=== PATIENT | male | born 1950 | race Caucasian/White ===

== ENCOUNTER 2017-10-15 11:41 | Emergency (ER) | payer MEDICARE, MEDICAID ==
[~2017-10-15] VITALS: Ht 182.9 cm; Wt 81.7 kg
[~2017-10-15 11:41] MED LIST: AF CAPSICUM 0.060 GM TOP; AMOXIL 875 MG875 M1 PO; APAP500; ASPIRIN EC325 M1 PO; B-121000 MC2 PO; BISMATROL525 MG/15; BISMATROL525 MG/15 PO; CARDIZEM CD120 MG PO; CARDIZEM CD180 MG PO; CLARITIN10 MG PO; COLACE 100 MG100 MG PO; DILTIAZEM 24HR240 M1 PO; DILTIAZEM ER120 MG PO; DUONEB 2.5-0.5 M3 ML INH; FLOMAX0.4 MG PO; FLONASE 0.05%50 MCG NASAL; FOLIC ACID1 MG PO; FOSAMAX 70 MG T70 M1; KEPPRA 500 MG500 M1 PO; LANOXIN 0.250.25 M1 PO; LORATIDINE 10 M10 M1; MULTAQ400 MG PO; MULTIVITAMINS1 EAC7; MULTIVITAMINS1 EAC7 PO; NAPROXEN DELAY500 M1 PO; OLANZAPINE5 MG; OMEPRAZOLE 20 M20 MG; OMEPRAZOLE20 M1 PO; OYSTER SHELL C1 EA14; PRENATAL PO; ROBITUSSIN100 MG/53 PO; SEA OMEGA; TRIPLE ANTIBIO1 EACH; TYLENOL COLD M240 ML PO; TYLENOL COLD-F240 ML; TYLENOL325 MG PO; VITAMIN C 250250 MG; VITAMIN C250 MG PO; VITAMIN D1000 UNI1 PO; ZYPREXA 5 MG TAB5 MG PO; ZYPREXA5 MG PO; [UNRECOGNIZED DRUG - OTHER]
[2017-10-15 12:24] LABS: HEMATOCRIT 43.5 % (42.0-52.0); HEMOGLOBIN 14.5 gm/dL (14.0-18.0); MCH 31.9 pg (26.0-34.0); MCHC 33.4 g/dL (28.0-37.0); MCV 95.5 fL (80.0-100.0); MPV 7.7 fl. (7.2-11.1); NUCLEATED RBCS 0 /100WBC; PLATELET COUNT* 183 thou/uL (150-400); RBC 4.55 mil/uL (4.50-6.00); RDW-CV 13.7 % (10.5-14.5); WBC 9.2 thou/uL (4.0-11.0)
[2017-10-15 12:35] LABS: ALBUMIN 3.7 g/dL (3.4-5.0); CALCIUM 8.9 mg/dL (8.5-10.1); CREATININE 1.1 mg/dL (0.6-1.3); POTASSIUM 4.2 mmol/L (3.5-5.1); TOTAL BILIRUBIN 0.6 mg/dL (<0.1-1.0); TOTAL PROTEIN 7.3 g/dL (6.4-8.2)
[2017-10-15 12:39] LABS: ABSOLUTE EOSINOPHILS 0.1 thou/uL (0.0-0.7); ABSOLUTE LYMPHOCYTES 0.8 thou/uL (0.8-5.3); ABSOLUTE MONOCYTES 0.3 thou/uL (0.0-1.2); ANISOCYTOSIS 1+; PLATELET ESTIMATE ADEQUATE; POIKILOCYTOSIS 1+
[2017-10-15 12:57] VITALS: BP 127/61
--- NOTE | 2017-10-15 20:20 | EKG ---
[place] [address] ELECTROCARDIOGRAM REPORT Name: ELIF STINSON Room: [facility]#: [id number] Admission: 10/15/17 Attend Phys: Discharge: 10/15/17 Date of : 52 Report #: [id number] THIS REPORT FOR: //name// [facility] ED Test Date: 2017-10-15 Test Time: 11:54:14 Pat Name: ELIF STINSON Department: Room: Gender: M Power Line Lineman: Sadi GORE : 1950 Requested By: Mo Jack Order Number: [id number] MD: Hesham Garcia Measurements Intervals [place] Rate: 106 P: 39 MT: 176 QRS: -19 QRSD: 111 T: 43 QT: 360 QTc: 479 Interpretive Statements Sinus tachycardia Abnormal R-wave progression, early transition Inferior infarct, old Compared to ECG 08/07/2017 11:37:05 Myocardial infarct finding now present Sinus rhythm no longer present Electronically Signed On 10-15-2017 20:20:37 WELT STITCH CLEANER by Hesham Garcia [email or web address] <ELECTRONICALLY SIGNED> By: Hesham Garcia MD, FACC 10/15/172019 1154 1154 Hesham Garcia MD, [facility] /EPI
== END 2017-10-15 12:59 | disposition home or self-care (01) ==
LOC: M.ERS 11:41
PROVIDERS: Family Medicine
DX: R56.9 Unspecified convulsions (principal); M19.90 Unspecified osteoarthritis, unspecified site; M81.0 Age-related osteoporosis without current pathological fracture; I48.91 Unspecified atrial fibrillation; R27.0 Ataxia, unspecified; Z86.73 Personal history of transient ischemic attack (TIA), and cerebral infarction without residual deficits

== ENCOUNTER 2018-07-31 13:55 | Emergency (ER) | payer MEDICARE, MEDICAID ==
[~2018-07-31] VITALS: Ht 175.3 cm; Wt 80.7 kg
[2018-07-31] MEDS ORDERED: KEPPRA750 MG PO (14:20)
[2018-07-31] MEDS ORDERED: DESITIN57 GM TOP (14:23)
[2018-07-31 14:56] LABS: ABSOLUTE BASOPHILS 0.1 thou/uL (0.0-0.2); ABSOLUTE EOSINOPHILS 0.1 thou/uL (0.0-0.7); ABSOLUTE LYMPHOCYTES 1.2 thou/uL (0.8-5.3); ABSOLUTE MONOCYTES 0.4 thou/uL (0.0-1.2); ABSOLUTE NEUTROPHILS 8.3 thou/uL (1.6-8.1); BASOPHILS 0.7 %; EOSINOPHILS 1.2 %; HEMATOCRIT 39.5 % (42.0-52.0); HEMOGLOBIN 13.4 gm/dL (14.0-18.0); LYMPHOCYTES 12.2 %; MCH 31.7 pg (26.0-34.0); MCHC 33.9 g/dL (28.0-37.0); MCV 93.4 fL (80.0-100.0); MONOCYTES 4.3 %; MPV 6.6 fl. (7.2-11.1); NUCLEATED RBCS 0 /100WBC; PLATELET COUNT* 249 thou/uL (150-400); POLYS 81.6 %; RBC 4.23 mil/uL (4.50-6.00); WBC 10.1 thou/uL (4.0-11.0)
[2018-07-31 15:06] LABS: ANION GAP 8 mmol/L (7-16); BUN 20 mg/dL (7-18); CALCIUM 9.2 mg/dL (8.5-10.1); CHLORIDE 105 mmol/L (98-107); CO2 28 mmol/L (21-32); CREATININE 0.9 mg/dL (0.6-1.3); GLUCOSE 125 mg/dL (70-99); POTASSIUM 3.7 mmol/L (3.5-5.1); SODIUM 141 mmol/L (136-145)
[2018-07-31 15:17] LABS: ALKALINE PHOSPHATASE 71 U/L (46-116); NT-PRO BRAIN NAT PEPTIDE 241 pg/mL (<300); SGOT 19 U/L (15-37); SGPT 22 U/L (30-65); TOTAL BILIRUBIN 0.5 mg/dL (<0.1-1.0); TOTAL PROTEIN 7.4 g/dL (6.4-8.2); TROPONIN-I LEVEL <0.06 ng/mL (<0.06)
[2018-07-31] MEDS ORDERED: FLAGYL500 M1 PO (15:24)
[2018-07-31] MEDS ORDERED: ZOFRAN4 MG PO (15:24)
[2018-07-31 15:34] VITALS: BP 130/67
--- NOTE | 2018-08-01 10:21 | EKG ---
[place] [address] ELECTROCARDIOGRAM REPORT Name: ELIF STINSON Room: [facility]#: [id number] Admission: 07/31/18 Attend Phys: Discharge: 07/31/18 Date of : 52 Report #: [id number] THIS REPORT FOR: //name// [facility] ED Test Date: 2018-07-31 Test Time: 14:25:18 Pat Name: ELIF STINSON Department: Room: Gender: M Therapist Rrt: Sadi GORE : 1950 Requested By: Lowell Maddox Order Number: [id number] MD: Daniele Barclay Measurements Intervals [place] Rate: 75 P: 28 PA: 169 QRS: -39 QRSD: 114 T: 19 QT: 408 QTc: 456 Interpretive Statements Sinus rhythm artifact noted Borderline IVCD with LAD Low voltage, precordial leads Compared to ECG 10/15/2017 11:54:14 Low QRS voltage now present Sinus tachycardia no longer present Electronically Signed On 08-01-2018 10:20:53 OUTBOUND SUPERVISOR by Daniele Barclay [email or web address] <ELECTRONICALLY SIGNED> By: Daniele Barclay MD, [facility] 08/01/18 1020 1425 1425 Daniele Barclay MD, [facility] /EPI
== END 2018-07-31 15:35 | disposition home or self-care (01) ==
LOC: M.ERS 13:55
PROVIDERS: Emergency Medicine
DX: R13.10 Dysphagia, unspecified (principal); M19.90 Unspecified osteoarthritis, unspecified site; I48.91 Unspecified atrial fibrillation

== ENCOUNTER 2019-06-20 10:45 | Inpatient (IN) | payer MEDICARE, MEDICAID ==
[2019-06-20] VITALS (11 sets, daily range): BP systolic 114–138; BP diastolic 56–79
[~2019-06-20] VITALS: Ht 177.8 cm; Wt 86.0 kg
[~2019-06-20 10:45] MED LIST changes: +DESITIN57 GM TOP; +FLAGYL500 M1 PO; +KEPPRA750 MG PO; +ZOFRAN4 MG PO
[2019-06-20 11:05] LABS: ABSOLUTE BASOPHILS 0.1 thou/uL (0.0-0.2); ABSOLUTE LYMPHOCYTES 1.2 thou/uL (0.8-5.3); ABSOLUTE MONOCYTES 0.5 thou/uL (0.0-1.2); BASOPHILS 1.1 %; EOSINOPHILS 0.5 %; HEMATOCRIT 41.5 % (42.0-52.0); HEMOGLOBIN 14.1 gm/dL (14.0-18.0); LYMPHOCYTES 17.9 %; MCH 31.8 pg (26.0-34.0); MCHC 33.9 g/dL (28.0-37.0); MCV 93.8 fL (80.0-100.0); MONOCYTES 7.1 %; MPV 7.9 fl. (7.2-11.1); NUCLEATED RBCS 0 /100WBC; PLATELET COUNT* 191 thou/uL (150-400); POLYS 73.4 %; RBC 4.42 mil/uL (4.50-6.00); RDW-CV 13.8 % (10.5-14.5); WBC 6.8 thou/uL (4.0-11.0)
[2019-06-20 11:15] LABS: CALCIUM 9.6 mg/dL (8.5-10.1); CREATININE 1.2 mg/dL (0.6-1.3); POTASSIUM 3.9 mmol/L (3.5-5.1)
[2019-06-20 11:19] LABS: ALBUMIN 4.2 g/dL (3.4-5.0); TOTAL BILIRUBIN 0.4 mg/dL (<0.1-1.0); TOTAL PROTEIN 7.5 g/dL (6.4-8.2)
[2019-06-20] MEDS ORDERED: SERTRALINE HCL100 MG PO (11:42)
[2019-06-20] MEDS ORDERED: LORAZEPAM 0.50.5 MG PO (11:43)
[2019-06-20] MEDS ORDERED: KEPPRA XR500 MG PO (11:43)
[2019-06-20 12:27] LABS: APTT 23.3 Seconds (25.0-31.3); INR 1.2; PROTIME 12.1 Seconds (9.20-11.50)
--- NOTE | 2019-06-20 14:46 | NUR ---
PT ADMITTED TO ROOM 001 AROUND 1305 WITH DX SEIZURE D/O. PT'S DISABILITY PROGRAM NAVIGATOR FROM HIS IS LONG-TERM AT BEDSIDE AND ANSWERING QUESTIONS. REPORTS THAT PT'S BASELINE IS WALKING WITH WALKER/ VERBAL BUT DIFFICULT TO UNDERSTAND/ MAY NEED 1:1 SITTER AT BEDSIDE WHEN MORE ALERT D/T NONCOMPLIANCE WITH FALL PRECAUTIONS AND PULLING AT MEDICAL EQUIPMENT / LOVES TO SIT IN CHAIR DURING DAY AND COLORING. PT IS MORE ALERT AT TIME OF ADMISSION. SEIZURE PRECAUTIONS IN PLACE. REPORTED THAT PT HAS NOT HAD A SEIZURE FOR ABOUT A YEAR ON HIS CURRENT KEPPRA DOSE. REPORTED THAT PT HAS NOT MISSED ANY DOSES OF KEPPRA RECENTLY. WILL ASSESS SWALLOWING LATER THIS AFTERNOON. REPORTED THAT PT REQUIRES HIS MEAT TO BE CUTUP. NO OTHER CONCERNS AT THIS TIME. CLWR. WCTM.
--- NOTE | 2019-06-20 16:32 | EKG ---
[place] [address] ELECTROCARDIOGRAM REPORT Name: ELIF STINSON Room: [address] ADM IN M.R.#: [id number] Admission: 06/20/19 Attend Phys: Fabrizio Rodriguez Discharge: Date of : 52 Report #: [id number] THIS REPORT FOR: //name// [facility] ED Test Date: 2019-06-20 Test Time: 11:22:23 Pat Name: ELIF STINSON Department: Room: [facility] Gender: M Air Hammer Stripper: ESTRELLA : 1950 Requested By: Mo Jack Order Number: [id number] MD: Hesham Garcia Measurements Intervals [place] Rate: 126 P: MA: QRS: -37 QRSD: 108 T: -16 QT: 339 QTc: 491 Interpretive Statements Atrial fibrillation with rapid ventricular response Inferior infarct, old Compared to ECG 07/31/2018 14:25:18 Myocardial infarct finding now present Sinus rhythm no longer present Electronically Signed On 06-20-2019 16:31:53 CDT by Hesham Garcia [email or web address] <ELECTRONICALLY SIGNED> By: Hesham Garcia MD, FACC 06/20/19 1631 1122 1122 Hesham Garcia MD, FACC /EPI
--- NOTE | 2019-06-20 16:42 | NUR ---
PT HAS NOT HAD ANY FURTHER SEIZURES SINCE ADMISSION TO ICU UNIT. PT ALERT WITH SOME DROWSINESS NOTED. PT SITTING UP IN BED AND COLORING. MULTIPLE VISITORS FROM IS LONG-TERM. NO OTHER CONCERNS AT THIS TIME. CLWR. WCTM.
--- NOTE | 2019-06-20 23:04 | NUR ---
PT PASSED BEDSIDE SWALLOW TEST, HOWEVER, WAS REFUSING TO DRINK MORE WATER AND WANTING TO GO BACK TO SLEEP.
[2019-06-21] VITALS (10 sets, daily range): BP systolic 106–135; BP diastolic 46–81
--- NOTE | 2019-06-21 04:43 | NUR ---
VITALS STABLE, AFEBRILE. NO SEIZURE ACTIVITIES THIS EVENING. PT SLEPT THROUGH MOST OF THE NIGHT. OBEYS COMMANDS, SHAKES HEAD YES/NO APPROPRIATELY TO QUESTIONS. PT INCONTINENT, WAS ABLE TO USE URINAL ONCE. PATIENT RESUMED ON HOME KEPPRA DOSE, DOSE VERIFIED WITH [facility]. FACILITY NOTIFIED TO BRING A COPY OF PATIENT'S MEDICAL RECORDS IN THE MORNING. OTHERWISE UNEVENTFUL NIGHT. REMAINS ON SEIZURE PRECAUTIONS, Q2 TURNS FOR SKIN INTEGRITY.
--- NOTE | 2019-06-21 10:15 | NUR ---
SPOKE WITH PT.AND [address] [facility], WHERE PT.LIVES. PT.ANSWERS SIMPLE YES/NO QUESTIONS FOR THIS CM. STAFF SAID HE WALKS WITH A WALKER HOUSEHOLD DISTANCES. CAN FEED SELF. IS INCONTINENT AT TIMES. PT.HAS GUARDIAN-PUBLIC CATERING ASSISTANT. PT.HAS TELE/MS ORDERS FOR TODAY AND MAY POSSIBLY BE DISCHARGED TOMORROW. STAFF SAID SOMEONE FROM [facility] CAN TRANSPORT HIM HOME. [phone]/AFTER 4PM IS [phone]. PUBLIC CATERING ASSISTANT OFFICE [phone]. NEED TO OBTAIN CONSENT FOR ANY PROCEDURE/ AND AT DISCHARGE.
--- NOTE | 2019-06-21 12:07 | NUR ---
PT AWAKE AND ALERT, ANSWERS YES OR NO QUESTIONS. VSS. TOLERATED HIS DIET. INCONTINENT OF URINE. SEIZURE PRECAUTIONS IN PLACE. REPORT GIVEN TO HEATHER BENNETT, TELEMETRY.
--- NOTE | 2019-06-21 12:30 | NUR ---
TRANSFER FROM ICU TO 224 VIA BED TELEPHONE REPORT GIVEN PRIOR TO TRANSFER PATIENT SETTLED IN WITH CALL LIGHT IN REACH AND BED AALRM SET
--- NOTE | 2019-06-22 05:33 | NUR ---
VSS. SEE MAR. SEE CHARTING. PROGRESSING TOWARDS GOAL. FALL PRECAUTIONS IN PLACE. HOURLY ROUNDING FOR SAFETY.
[2019-06-22 07:30] VITALS: BP 135/84
[2019-06-22 08:00] VITALS: BP 134/85
[2019-06-22 11:00] VITALS: BP 129/72
[2019-06-22 16:04] VITALS: BP 133/72
--- NOTE | 2019-06-22 18:25 | NUR ---
PT VSS, PT NSR ON TELE, ORIENTED TO SELF ONLY. SEIZURE PRECATIONS IN PLACE. PT DOES NOT HAVE IV ACCESS PER ORDER BY DR. SNOW. PT CONTINUES TO PULL OUT LINES. PT CHANGED FROM IV KEPPRA TO PO KEPPRA WITH DOSE CHANGE BY TELEPHONE ORDER FROM DR. MENSAH. WATCH PT FOR DROWSINESS. INCONTINENT OF BOWEL AND BLADDER. HOURLY ROUNDING PERFORMED, CALL LIGHT WITHIN REACH.
[2019-06-22 19:45] VITALS: BP 120/60
--- NOTE | 2019-06-22 21:17 | NUR ---
INITAL ASSESMENT COMPLETED AT 1945. PT ALERT AND ORIENTED TO PERSON. PT PLEASANT AND COOPERATIVE, FOLLOWS COMMANDS. VITAL SIGNS WITHIN NORMAL LIMITS. BED ALARM ON, FALL PRECAUTIONS IN PLACE. FREQUENT VISUAL CHECKS DONE.
[2019-06-23] VITALS: BP 131/74
[2019-06-23 07:43] VITALS: BP 133/73
[2019-06-23 08:00] VITALS: BP 123/73
[2019-06-23 11:15] VITALS: BP 123/73
[2019-06-23 11:18] VITALS: BP 132/76
--- NOTE | 2019-06-23 11:30 | NUR ---
ORDERS NOTED FOR DC BACK TO [facility], PT IS CURRENT WITH [facility] . CALLED AND DISCUSSED WITH PA/KHUSHBU IRWIN, APPROVED HH AND ASKED THAT DC PAPERS BE FAXED TO HER AT [phone], done. CALL TO [facility], FAXED DC INFO TO HER AND SHE WILL ARRANGE FOR TRANSPORT HOME BY STAFF AT 2PM. CALLED AND FAXED HH TO [facility]. PT MADE AWARE WELL NURSE.
[2019-06-23 13:49] VITALS: BP 123/73
--- NOTE | 2019-06-24 19:43 | NUR ---
PT VSS, PT NSR ON TELE, PT BEDREST, SEIZURE PRECAUTIONS IN PLACE. PT INCONTINENT OF BOWEL AND BLADDER. REC DC ORDERS REVIEW ORDERS WITH FRIENDS WHO PICKED HIM UP. PT LIVES AT [facility] IN [place]. SENT CHART PACKET WITH PT AND FRIENDS. ANSWERED QUESTIONS. REMOVED TELE MONITOR. PT TAKEN TO THE FRONT DOOR IN WHEELCHAIR BY NURSING STAFF WHERE PT WAS PICKED UP BY FRIENDS FROM [facility].
--- NOTE | 2019-06-30 14:24 | EEG ---
[address] [address] EEG STUDY REPORT Name: ELIF STINSON Room: [address] IN .R.#: [id number] Admission: 06/20/19 Attend Phys: Fabrizio Rodriguez Discharge: 06/23/19 Date of : 52 Report #: [id number] THIS REPORT FOR: //name// CC: Claude Villatoro DATE OF SERVICE: 06/22/2019 This patient was admitted with episodes of seizures, EEG is being done to further evaluate that. EEG was done by placing the electrode by standard 10-20 system of electrode placement. Both referential and sequential montages were used for recording. Background activity in this patient's EEG is about 9-10 Hz and 30 microvolt. The patient went to sleep that is associated with bilateral slowing and vertex sharp waves. Photic stimulation was unremarkable. Throughout the record, no active epileptiform activity was noticed. IMPRESSION: This patient's EEG does not show any active epileptiform activity. Thank you very much for this referral. <ELECTRONICALLY SIGNED> By: John Rome MD 06/30/19 1424 1742 [id number] Rome MD /nt
--- NOTE | 2019-06-30 14:24 | CON ---
[address] [address] CONSULTATION Name: ELIF STINSON Room: [address] IN M.R.#: [id number] Admission: 06/20/19 Attend Phys: Fabrizio Rodriguez Discharge: 06/23/19 Date of : 52 Report #: [id number] THIS REPORT FOR: //name// CC: Claude Villatoro DATE OF SERVICE: 06/21/2019 HISTORY OF PRESENT ILLNESS: This is a 69-year-old male patient who is not able to provide any reliable history. I talked to the night nurses and she tried to call the place where he lived and I talked to the day nurses and I reviewed the records, it looks like the patient had seizures. It looks like he usually goes to Dr. Doss who is an epileptologist at [facility]. I called the patient's family doctor and they tell me this patient does not have intractable seizure the best they know, but this patient is admitted with breakthrough seizure, but this patient is on 3500 mg of Keppra and it is a long-acting medications, he takes it at night. That is all the history I can get. It is after a lot of effort that we were able to get the dosages of the patient's medication. The record indicates that his review of systems is positive for mental retardation, atrial fibrillation, history of seizure, history of ataxia. His EKG has demonstrated atrial flutter. He does not provide any history, thus all the 14-point review of system I can get in this patient after multiple attempts. PAST MEDICAL HISTORY: Positive for mental retardation and seizure. FAMILY HISTORY: Unavailable. SOCIAL HISTORY: Also unavailable except he lives in a longterm. PHYSICAL EXAMINATION: NEUROLOGIC: His examination is very limited. He is awake. He does not follow commands on a persistent basis. His speech output is limited. He looks like he can move both sides. He does not cooperate with the cranial nerve examination. He has no thyroid mass. I cannot tell about hearing or vision. VITAL SIGNS: Blood pressure is 107/51, respiration is 10 and pulse is 72, temperature is 97.9. He did have a CT scan of the head on admission and that demonstrated extensive sinusitis. IMPRESSION: Pretty difficult to form in this patient. He is on significant dose of Keppra. The approve dose of Keppra is 1500 mg b.i.d., but frequently higher dose of 2000 b.i.d. is used in this patient. I do not know if all his seizures are epileptiform seizures or whether some of them are non-epileptiform or even more importantly they [place] [address] CONSULTATION Name: ELIF STINSON Room: [address] IN [facility]#: [id number] Admission: 06/20/19 Attend Phys: Fabrizio Rodriguez Discharge: 06/23/19 Date of : 52 Report #: [id number] I will get an EEG done. I will probably increase his Keppra, but his epileptologist need to decide if they want to add another anticonvulsant. He has not had any further seizure. More than 35 minutes of time was spent taking care of this patient today. <ELECTRONICALLY SIGNED> By: John Rome MD 06/30/19 1424 1619 1906John Rome MD /nt
== END 2019-06-23 14:30 | disposition home health service (06) | DRG 101 ==
LOC: M.ERS 10:45 → M.ICU 11:57 → M.TBA-ER 11:57 → M.ICU 11:57 → M.2W 06-21 12:38
PROVIDERS: Family Medicine; ADMIT Internal Medicine
PROC: 05HY33Z Insertion of Infusion Device into Upper Vein, Percutaneous Approach (ICD-10-PCS; principal; 2019-06-21)
DX: G40.909 Epilepsy, unspecified, not intractable, without status epilepticus (principal); M19.90 Unspecified osteoarthritis, unspecified site; I48.91 Unspecified atrial fibrillation; M81.0 Age-related osteoporosis without current pathological fracture; Z79.899 Other long term (current) drug therapy

== ENCOUNTER 2020-10-22 04:15 | Emergency (ER) | payer MEDICARE, MEDICAID ==
[~2020-10-22] VITALS: Ht 177.8 cm; Wt 93.0 kg
[~2020-10-22 04:15] MED LIST changes: +KEPPRA XR500 MG PO; +LORAZEPAM 0.50.5 MG PO; +SERTRALINE HCL100 MG PO
[2020-10-22] MEDS ORDERED: ZONISAMIDE 100100 M1 PO (05:16)
[2020-10-22 05:39] VITALS: BP 117/72
== END 2020-10-22 05:39 | disposition home or self-care (01) ==
LOC: M.ERS 04:15
DX: G40.909 Epilepsy, unspecified, not intractable, without status epilepticus (principal); M19.90 Unspecified osteoarthritis, unspecified site; I48.91 Unspecified atrial fibrillation; Z86.73 Personal history of transient ischemic attack (TIA), and cerebral infarction without residual deficits